=== PATIENT | female | born 1955 | race Caucasian/White ===

== ENCOUNTER 2019-02-14 09:38 | Inpatient (IN) | payer OTHER ==
[2019-02-11 17:16] VITALS: BMI 28.6
[~2019-02-14] VITALS: Ht 157.5 cm; Wt 76.5 kg
[2019-02-14] VITALS (19 sets, daily range): BP systolic 118–156; BP diastolic 59–76; PULSE 76–89; RESP 11–24; Ht 157.5 cm; Wt 76.5 kg
[~2019-02-14 09:38] MED LIST: BEN25 PO; ESOM20CA PO; HYDR-4011 PO; IBUP-1542 PO; LOVA20TA PO; PERCOCET PO; ZOF8 PO
[2019-02-14] MEDS ORDERED: BUPIVACAINE 0.25% (MPF) 30 ML INJ ONE (11:23)
[2019-02-14] MEDS ORDERED: POLYMYXIN/BACITRACIN 1L IRRIG ONE (11:23)
[2019-02-14] MEDS ORDERED: POLYMYXIN/BACITRACIN 1L IRRIG IRR ONE (11:45)
[2019-02-14] MEDS ORDERED: BUPIVACAINE 0.5% (SDV) 30 ML INJ INJ ONE (11:45)
[2019-02-14] MEDS ORDERED: MIDAZOLAM 1 MG/ML 2 ML INJ ONE (11:52)
[2019-02-14] MEDS ORDERED: CEFAZOLIN 2 GM/50 ML (PMX) 50 ML IVPB ONE (12:00)
[2019-02-14] MEDS ORDERED: SOD CHLORIDE 0.9% 1,000 ML IV SCH (12:00)
[2019-02-14] MEDS ORDERED: GLYCOPYRROLATE 0.4 MG INJ ONE (13:51)
[2019-02-14] MEDS ORDERED: ROCURONIUM 50 MG INJ ONE (13:51)
[2019-02-14] MEDS ORDERED: ETOMIDATE 20 MG INJ ONE (13:51)
[2019-02-14] MEDS ORDERED: CEFAZOLIN 1 GM INJ ONE (13:51)
[2019-02-14] MEDS ORDERED: NEOSTIGMINE 3 MG/3 ML SYRINGE ONE (13:51)
[2019-02-14] MEDS ORDERED: LIDOCAINE 2% (SDV) 5 ML INJ ONE (13:51)
[2019-02-14] MEDS ORDERED: ROPIVACAINE 0.5 % 30 ML VIAL ONE (13:52)
[2019-02-14] MEDS ORDERED: ONDANSETRON 4 MG INJ ONE (13:57)
[2019-02-14] MEDS ORDERED: OXYCODONE/ACETAMINOPHEN (5/325) TAB PO PRN (14:30)
[2019-02-14] MEDS ORDERED: MEPERIDINE 25 MG INJ IV PRN (14:30)
[2019-02-14] MEDS ORDERED: morphine 2 MG INJ IV PRN (14:30)
[2019-02-14] MEDS ORDERED: DIPHENHYDRAMINE 50 MG INJ IV PRN (14:30)
[2019-02-14] MEDS ORDERED: METOCLOPRAMIDE 10 MG INJ IV PRN (14:30)
[2019-02-14] MEDS ORDERED: IBUPROFEN 600 MG TAB PO PRN (14:30)
[2019-02-14] MEDS ORDERED: LABETALOL HCL 20MG INJ IV PRN (14:30)
[2019-02-14] MEDS ORDERED: ONDANSETRON 4 MG INJ IV PRN ×2 (14:30)
[2019-02-14] MEDS ORDERED: FENTAnyl 50 MCG/ML VIAL IV PRN (14:30)
[2019-02-14] MEDS ORDERED: hydrALAzine 20 MG INJ IV PRN (14:30)
[2019-02-14] MEDS ORDERED: HYDROmorphONE 1 MG/5 ML IV SYRINGE IV PRN ×2 (14:30)
[2019-02-14] MEDS ORDERED: ACETAMINOPHEN 325 MG TAB PO PRN (14:30)
[2019-02-14] MEDS ORDERED: CEFAZOLIN 2 GM/50 ML (PMX) 50 ML IVPB SCH (15:00)
[2019-02-14] MEDS: DEXTROSE 5%-0.45% NACL 1,000 ML IV SCH (16:14)
[2019-02-14] MEDS: CEFAZOLIN 2 GM/50 ML (PMX) 50 ML IVPB SCH (20:22)
[2019-02-14] MEDS: FAMOTIDINE 20 MG TAB PO SCH (20:23)
[2019-02-14] MEDS: DOCUSATE SODIUM 100 MG CAP PO SCH (20:24)
[2019-02-15] MEDS: DEXTROSE 5%-0.45% NACL 1,000 ML IV SCH ×2 (00:30→01:07)
[2019-02-15 01:42] VITALS: BP 124/58; PULSE 78; RESP 17
[2019-02-15] MEDS: CEFAZOLIN 2 GM/50 ML (PMX) 50 ML IVPB SCH ×2 (03:47→11:45)
[2019-02-15 07:48] VITALS: BP 138/63; PULSE 74; RESP 18
[2019-02-15] MEDS: DOCUSATE SODIUM 100 MG CAP PO SCH ×3 (09:24→20:07)
[2019-02-15] MEDS: POTASSIUM CHLORIDE (SR) 20 MEQ TAB PO SCH ×2 (10:21→15:39)
[2019-02-15 14:30] VITALS: BP 112/74; PULSE 80; RESP 18
[2019-02-15] MEDS ORDERED: ONDANSETRON 4 MG INJ IV PRN (14:30)
[2019-02-15] MEDS: FAMOTIDINE 20 MG TAB PO SCH (20:07)
[2019-02-15] MEDS: OXYCODONE/ACETAMINOPHEN (5/325) TAB PO PRN (20:07)
[2019-02-15 20:08] VITALS: BP 145/66; PULSE 104; RESP 18
[2019-02-16 02:04] VITALS: BP 138/66; PULSE 70; RESP 17
[2019-02-16 07:51] VITALS: BP 123/56; PULSE 72; RESP 16
[2019-02-16] MEDS: DOCUSATE SODIUM 100 MG CAP PO SCH ×3 (08:03→20:23)
[2019-02-16] MEDS: OXYCODONE/ACETAMINOPHEN (5/325) TAB PO PRN ×2 (08:04→13:59)
[2019-02-16 13:31] VITALS: BP 108/68; PULSE 73; RESP 18
[2019-02-16] MEDS ORDERED: POTASSIUM CHLORIDE (SR) 20 MEQ TAB PO STA (13:37)
[2019-02-16 20:05] VITALS: BP 130/65; PULSE 76; RESP 18
[2019-02-16] MEDS: FAMOTIDINE 20 MG TAB PO SCH (20:23)
[2019-02-17 02:00] VITALS: BP 102/51; PULSE 80; RESP 18
[2019-02-17 07:51] VITALS: BP 134/62; PULSE 83; RESP 15
[2019-02-17] MEDS: DOCUSATE SODIUM 100 MG CAP PO SCH ×2 (09:15→15:06)
[2019-02-17] MEDS ORDERED: MAGNESIUM HYDROXIDE 30ML CUP PO ONE (10:00)
== END 2019-02-17 15:25 | disposition home or self-care (01) | DRG 355 ==
LOC: SDS 09:38 → 2NE 14:12 → OBSVTOIN 02-15 18:57
PROVIDERS: ADMIT Surgery; ATTEND Surgery
PROC: 0WUF4JZ Supplement Abdominal Wall with Synthetic Substitute, Percutaneous Endoscopic Approach (ICD-10-PCS; principal; 2019-02-14 13:30)
DX: K46.9 Unspecified abdominal hernia without obstruction or gangrene (principal); Z68.30 Body mass index [BMI] 30.0-30.9, adult; E66.9 Obesity, unspecified; G89.18 Other acute postprocedural pain
CPT/HCPCS: 80048; 80053; 85025; 97116; 97162; 97530; G0378; J0690; J1170; J2175; J2250; J2405; J2710; J2765; J2795; J3010; J7042